=== PATIENT | male | born 1975 | race American Indian/Alaskan Native ===

== ENCOUNTER 2017-06-11 14:26 | Emergency (ER) | payer OTHER ==
[~2017-06-11] VITALS: Ht 175.3 cm; Wt 90.7 kg
== END 2017-06-11 14:50 | disposition home or self-care (01) ==
LOC: ED 14:26
DX: R51 Headache (principal); R53.83 Other fatigue
CPT/HCPCS: 99281

== ENCOUNTER 2018-12-31 14:28 | Emergency (ER) | payer OTHER ==
[~2018-12-31] VITALS: Ht 175.3 cm; Wt 81.6 kg
[2018-12-31 14:45] VITALS: BP 133/81; TEMP 98.5
== END 2018-12-31 16:40 | disposition home or self-care (01) ==
LOC: ED 14:28
DX: K08.89 Other specified disorders of teeth and supporting structures (principal); K04.7 Periapical abscess without sinus
CPT/HCPCS: 96372; 99283; J1885

== ENCOUNTER 2020-03-29 22:10 | Emergency (ER) | payer OTHER ==
[~2020-03-29] VITALS: Ht 175.3 cm; Wt 90.7 kg
[2020-03-30 01:16] VITALS: BP 129/76; TEMP 98.2
== END 2020-03-30 01:16 | disposition home or self-care (01) ==
LOC: ED 22:10
DX: T40.7X1A Poisoning by cannabis (derivatives), accidental (unintentional), initial encounter (principal); R42 Dizziness and giddiness; Y92.89 Other specified places as the place of occurrence of the external cause
CPT/HCPCS: 99281